=== PATIENT | male | born 1985 | race Caucasian/White ===

== ENCOUNTER 2024-04-06 14:29 | Emergency (ER) | payer OTHER ==
[~2024-04-06] VITALS: Ht 180.3 cm; Wt 123.0 kg
[2024-04-06 14:43] VITALS: O2SAT 95
[2024-04-06] MEDS: KETOROLAC 30MG/ML VIAL IM ONE (16:15)
[2024-04-06 16:17] VITALS: BP 132/95; PULSE 87; RESP 18; TEMP 36.89184; O2SAT 95
== END 2024-04-06 16:19 | disposition home or self-care (01) ==
LOC: ER 14:29
DX: M79.18 Myalgia, other site (principal); Z98.890 Other specified postprocedural states; W22.09XA Striking against other stationary object, initial encounter; Y93.89 Activity, other specified; Y92.89 Other specified places as the place of occurrence of the external cause; Y99.8 Other external cause status
CPT/HCPCS: 99283; 96372; J1885